=== PATIENT | male | born 1965 | race Two or more races ===

== ENCOUNTER 2017-01-31 05:34 | Emergency (ER) | payer OTHER ==
[2017-01-31] MEDS ORDERED: AZITHROMYCIN 250 MG TABLET ONE (05:53)
--- NOTE | 2017-01-31 08:14 | RAD ---
CHEST - 2 VIEWS COMPARISON: None. HISTORY: Cough and chills. FINDINGS: Views: Frontal and lateral chest Lungs: Normal Heart and vessels: Normal Trachea and bronchi: Normal Mediastinum and anshul: Normal Costophrenic sulci: Normal Chest wall and bones: Normal. Upper abdomen: Normal. IMPRESSION: Negative 2 view chest.
== END 2017-01-31 06:19 | disposition home or self-care (01) ==
LOC: ED 05:34
DX: J18.9 Pneumonia, unspecified organism (principal); R50.9 Fever, unspecified; Z79.1 Long term (current) use of non-steroidal anti-inflammatories (NSAID)
CPT/HCPCS: 71020; 87804; 99283 ×2; A9270